=== PATIENT | female | born 1985 | race Caucasian/White ===

== ENCOUNTER 2017-11-30 05:06 | Inpatient (IN) ==
[2017-11-30] MEDS ORDERED: fentaNYL Citrate Inj 100 MCG/2 ML Ampul IV.PUSH PRN ×2 (06:04)
[2017-11-30] MEDS ORDERED: Sod Chloride 0.9% Inj 1,000 ML IV.CONT PRN (06:04)
[2017-11-30] MEDS ORDERED: Naloxone Inj 0.4 MG/ML Vial IV.PUSH PRN ×2 (06:04→18:32)
[2017-11-30] MEDS ORDERED: Oxytocin 30 Units/500ml Premix 30 UNITS/500 ML BAG IV.SIG ONE (06:04)
[2017-11-30] MEDS ORDERED: Sodium Chlor 0.9% Inj 500 ML IV.SIG PRN (06:04)
--- NOTE | 2017-11-30 06:14 | P.HPOB ---
History of Present Illness Primary Care Physician: UNKNOWN Dr. Leon Chief Complaint: Contractions History of Present Illness: Patient is a 31-year-old white female at [address] weeks [address] to Dr[address] Leon for care and presents complaining of contractions for approximately 24 hours. Certainly gotten worse and more regular over the last few hours. She denies bleeding or leakage of fluid. Her NST is reactive she is brigitte every 2 minutes Weeks Gestation:: 39 Para: 0 : 1 Review of Systems Constitutional: Denies anorexia, Denies body ache(s), Denies chills, Denies daytime sleepiness, Denies excessive sweating, Denies fatigue, Denies fever(s), Denies headache(s), Denies increased appetite, Denies lack of energy, Denies malaise, Denies night sweats, Denies weakness, Denies weight gain, Denies weight loss, Denies other Cardiovascular: Denies bluish discoloration of hand/feet, Denies chest pain, Denies chest pain at rest, Denies chest pain with activity, Denies excessive sweating, Denies fainting, Denies fast heart rate, Denies foot swelling, Denies generalized swelling, Denies irregular heart rhythm, Denies leg pain with activity, Denies leg sores, Denies leg swelling, Denies lightheadedness, Denies radiating jaw, neck or arm pain, Denies rapid, pounding, or irregular heartbeat , Denies shortness of breath, Denies shortness of breath with activity, Denies shortness of breath when lying down, Denies shortness of breath causing sudden awakening, Denies slow heart rate, Denies other Respiratory: Denies change in phlegm color, Denies chest congestion, Denies cough, Denies coughing up blood, Denies excessive phlegm production, Denies pain on inspiration, Denies pain with cough, Denies shortness of breath, Denies shortness of breath with activity, Denies snoring, Denies stridor, Denies wheezing, Denies other Gastrointestinal: Denies abdominal pain, Denies belching, Denies black, tarry stools, Denies bloating, Denies bright, red blood in stools, Denies change in bowel habits, Denies constant urge to pass stool, Denies change in stools, Denies coffee ground vomit, Denies constipation, Denies cramping, Denies difficulty swallowing, Denies excessive passing of gas, Denies feeling full early, Denies heartburn, Denies incontinent of stools, Denies loose stools, Denies nausea, Denies pain with swallowing, Denies vomiting, Denies vomiting blood, Denies other Genitourinary: Denies abnormal periods, Denies abnormal vaginal bleeding, Denies absent period, Denies bleeding between periods, Denies blood in urine, Denies difficulty starting urination, Denies difficulty urinating, Denies dribbling after urination, Denies frequent nighttime urination, Denies genital itching, Denies genital lesions, Denies heavy periods, Denies hot flashes, Denies light periods, Denies nipple discharge, Denies painful intercourse, Denies painful periods, Denies painful urination, Denies pelvic pain, Denies prolapse symptoms, Denies sexual problems, Denies side pain, Denies urinary incontinence, Denies urinary urgency, Denies vaginal discharge, Denies vaginal dryness, Denies vaginal odor, Denies vaginal itching, Denies other Neurologic: Denies abnormal hearing, Denies abnormal movements, Denies abnormal speech, Denies abnormal walking, Denies behavioral changes, Denies burning sensations, Denies confusion, Denies dizziness, Denies fainting, Denies frequent falls, Denies headache(s), Denies lack of coordination, Denies localized weakness, Denies loss of vision, Denies memory loss, Denies numbness, Denies other visual disturbances, Denies radiating pain, Denies restless legs, Denies convulsions, Denies seizure-like activity, Denies sensory deficit, Denies tingling, Denies tingling/numbness/burning sensations, Denies tremor(s), Denies unsteadiness, Denies weakness, Denies other Hematologic/Lymphatic: Denies easy bleeding, Denies easy bruising, Denies enlarged lymph nodes, Denies other PMFSH - Social History I have reviewed the patient's Social History: Yes - Tobacco History Smoking Status: Never smoker - Alcohol History How Often Do You Have a Drink Containing Alcohol: Never - Substance Use History Substance History: No History of Abuse - Travel History History of Recent Travel: No Recent Travel in the [facility] Within the Last 8 Weeks: No Recent Travel Out of the Country Within the Last 8 Weeks: No Medications and Allergies Active Medications: Active Medications Citric Acid/Sodium Citrate (Sodium Citrate/Citric Acid Liq) 30 ml 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 [facility] Stop: 12/04/17 06:14 Fentanyl Citrate (Fentanyl Inj) 50 mcg IV.PUSH Q1H PRN PRN Reason: Pain Scale 3 - 5 Fentanyl Citrate (Fentanyl Inj) 100 mcg IV.PUSH Q1H PRN PRN Reason: PAIN SCALE 6 TO 10 Lactated Ringer's (Lr 1000 Ml Inj) 1,000 mls @ 125 mls/hr IV.CONT .Q8H PROSPER Lactated Ringer's (Lr 1000 Ml Inj) 1,000 mls @ 3,000 mls/hr IV.SIG UNSCH PRN PRN Reason: compromise or epidural Sodium Chloride (Ns Inj) 500 mls @ 1,000 mls/hr IV.SIG UNSCH PRN PRN Reason: SEE LABEL COMMENTS Sodium Chloride (Ns Inj) 1,000 mls @ 100 mls/hr IV.CONT .Q10H PRN PRN Reason: SEE LABEL COMMENTS Oxytocin (Pitocin 30 Units/Ns 500 Ml Premix) 30 units in 500 mls @ 999 mls/hr IV.SIG BOLUS ONE Stop: 11/30/17 06:34 Lidocaine HCl (Xylocaine 1% Inj) 0.1 ml I-DERMAL PRN PRN PRN Reason: For IV start Stop: 12/03/17 06:03 Lidocaine HCl (Xylocaine 1% Inj) 10 ml INFILTRATN PRN PRN PRN Reason: For episiotomy repair Stop: 12/02/17 06:03 Mineral Oil (Muri-Lube Oil) 10 ml TOPICAL PRN PRN PRN Reason: PRN perineal massage Naloxone HCl (Narcan Inj) 0.1 mg IV.PUSH Q2M PRN PRN Reason: for opiate reversal Ondansetron HCl (Zofran Inj) 4 mg IV.PUSH Q6H PRN PRN Reason: NAUSEA OR VOMITING Allergies Allergy/AdvReac Type Severity Reaction Status Date / Time No Known Allergies Allergy Unverified 11/30/17 05:18 Home Medications Medication Instructions Recorded Confirmed Type omega 2-usv-yzt-fish oil [Fish Oil] 1 cap PO DAILY 11/30/17 11/30/17 History prenat.vits,tania,ahn-baex-fdfom 1 tab PO DAILY 11/30/17 11/30/17 History [ Vitamin] valacyclovir [Valtrex] 500 mg PO DAILY 11/30/17 11/30/17 History Exam Vital signs: Vital Signs 11/30/17 05:25 Temperature 97.9 F Pulse Rate 80 Respiratory Rate 18 Blood Pressure 139/73 Intake & Output 11/29/17 11/29/17 11/30/17 06:59 18:59 06:59 Weight 81.647 kg Narrative: GENERAL: Well-nourished, well-developed patient. SKIN: Warm and dry. HEAD: Normocephalic and atraumatic. EYES: No scleral icterus. No injection or drainage. ENT: No nasal drainage noted. Mucous membranes pink. Airway patent. NECK: Supple, trachea midline. No JVD. CARDIOVASCULAR: Regular rate and rhythm without murmurs, gallops, or rubs. RESPIRATORY: Breath sounds equal bilaterally. No accessory muscle use. BREASTS: Bilateral exam showed no masses , no retractions, no nipple discharge. ABDOMEN/GI: Abdomen soft, non-tender, bowel sounds present, no rebound, no guarding Gravid to [39-] weeks size Fundal Height: [39-] GENITOURINARY: External Genitalia: intact and normal in appearance no herpetic lesions seen vagina free of lesions Cervix: [-post] Dilatation: [2-3-] Effacement: [80-] Station: [-3] Presentation: [vtx-] Membranes: [intact o ] Uterine Contractions: [q 2 min-] FHT's: Category: [-1] Baseline: [133-] Reactive: [R-] Variability: [-mod] Decels: [0-] EXTREMITIES: No cyanosis or edema. BACK: Nontender without obvious deformity. No CVA tenderness. NEUROLOGICAL: Awake and alert. Motor and sensory grossly within normal limits. Five out of 5 muscle strength in all muscle groups. Normal speech. - Constitutional no acute distress - Routine HEENT Exam Head: Present: normocephalic, atraumatic Eye: Present: PERRL Results - Labs Group B Strep: Negative Caprini VTE Risk Assessment Caprini VTE Risk Assessment: No/Low Risk (score <= 1) Caprini Risk Assessment Model: Point Value = 1 Point Value = 2 Point Value = 3 Point Value = 5 Age 41-60 Minor surgery BMI > 25 kg/m2 Swollen legs Varicose veins or History of unexplained or recurrent spontaneous Oral contraceptives or hormone replacement Sepsis (< 1 month) Serious lung disease, including pneumonia (< 1 month) Abnormal pulmonary function Acute myocardial infarction Congestive heart failure (< 1 month) History of inflammatory bowel disease Medical patient at bed rest Age 61-74 Arthroscopic surgery Major open surgery (> 45 min) Laparoscopic surgery (> 45 min) Malignancy Confined to bed (> 72 hours) Immobilizing plaster cast Central venous access Age >= 75 History of VTE Family history of VTE Factor V Leiden Prothrombin [id number] Lupus anticoagulant Anticardiolipin antibodies Elevated serum homocysteine Heparin-induced thrombocytopenia Other congenital or acquired thrombophilia Stroke (< 1 month) Elective arthroplasty Hip, pelvis, or leg fracture Acute spinal cord injury (< 1 month) Prophylaxis Regimen: Total Risk Factor Score Risk Level Prophylaxis Regimen 0-1 Low Early ambulation 2 Moderate Order ONE of the following: *Sequential Compression Device (SCD) *Heparin 5000 units SQ BID 3-4 Higher Order ONE of the following medications: *Heparin 5000 units SQ TID *Enoxaparin/Lovenox 40 mg SQ daily (WT < 150 kg, CrCl > 30 mL/min) *Enoxaparin/Lovenox 30 mg SQ daily (WT < 150 kg, CrCl > 10-29 mL/min) *Enoxaparin/Lovenox 30 mg SQ BID (WT < 150 kg, CrCl > 30 mL/min) AND/OR *Sequential Compression Device (SCD) 5 or more Highest Order ONE of the following medications: *Heparin 5000 units SQ TID (Preferred with Epidurals) *Enoxaparin/Lovenox 40 mg SQ daily (WT < 150 kg, CrCl > 30 mL/min) *Enoxaparin/Lovenox 30 mg SQ daily (WT < 150 kg, CrCl > 10-29 mL/min) *Enoxaparin/Lovenox 30 mg SQ BID (WT < 150 kg, CrCl > 30 mL/min) AND *Sequential Compression Device (SCD) Assessment and Plan - Diagnosis (1) 39 weeks gestation of Code(s): Z3A.39 - 39 weeks gestation of Status: Acute (2) Uterine contractions during Code(s): O62.2 - Other uterine inertia Status: Acute - Plan This primiparous patient of Dr. Leon's 39 weeks presents in early labor, cervix is 2-3/80/-3 with cervical loss very posterior, contractions are every 2- 3 minutes patient reports and quite painful and this been going on now for 24 hours she describes. She has a history of herpes simplex 2 has been on Valtrex for some time per alejandra Chahal no lesions noted and no lesions complained of Plan for the patient is admission to the hospital, managed labor and augment as needed and anticipate vaginal delivery per her private OB
[2017-11-30] MEDS ORDERED: Citric Acid/Sodium Citrate Liq 30 ML UDC PO SCH (06:15)
[2017-11-30 08:58] LABS: Bacteria,Urine Rare /hpf; Bilirubin,Urine Negative (Negative); Clarity,Urine Clear (Clear); Color,Urine Yellow (Yellw/Straw); Glucose,Urine (UA) Negative (Negative); Leukocyte Esterase,Urine Negative (Negative); Nitrite,Urine Negative (Negative); Specific Gravity,Urine 1.013 (1.002-1.035); Squamous Epithelial Cell,Urine <1 /hpf (0-5)
[2017-11-30 09:01] LABS: Baso % (Auto) 0.1 % (0.0-2.0); Eos % (Auto) 0.2 % (0.0-4.0); Hematocrit 40.8 % (35.0-46.0); Hemoglobin 13.5 gm/dL (11.6-15.3); Lymph # (Auto) 1.8 th/mm3 (1.0-4.8); Lymph % (Auto) 13.9 % (9.0-44.0); Mean Corpuscular HGB Conc 33.2 % (32.0-36.0); Mean Corpuscular Hemoglobin 32.7 pg (27.0-34.0); Mean Corpuscular Volume 98.4 fL (80.0-100.0); Mean Platelet Volume 10.3 fL (7.0-11.0); Mono # (Auto) 0.8 th/mm3 (0.0-0.9); Mono % (Auto) 6.4 % (0.0-8.0); Neut # (Auto) 10.3 th/mm3 (1.8-7.7); Neut % (Auto) 79.4 % (16.0-70.0); Platelet Count 194 th/mm3 (150-450); Red Blood Count 4.14 mil/mm3 (4.00-5.30); Red Cell Distribution Width 14.3 % (11.6-17.2)
--- NOTE | 2017-11-30 09:01 | MH ---
cc: Carlos Leon MD DATE OF ADMISSION: 11/30/2017 TIME: 8:30 a.m. ADMITTING DIAGNOSES: Term , early labor latent phase. HISTORY OF PRESENT ILLNESS: The patient is a 31-year-old single white female, para 0, with a LMP of 02/28/2017, EDC of 12/05/2017. Her course has been benign. She had normal Panorama testing. She was admitted this morning with intermittent contractions off and on since yesterday morning. They have become a little stronger when she woke up at 2:30 this morning. On arrival, she was 2-3 cm, 80, vertex -2 with a posterior cervix. She has been walking for about 2 hours and monitoring has been normal except for 1 deceleration mild. She has been rechecked now by me with no change in her cervix. PAST SURGICAL HISTORY: Third molars, breast augmentation. ALLERGIES: NONE. TRANSFUSIONS: None. OBSTETRIC HISTORY: First . SOCIAL HISTORY: She is single. 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 Her screening cultures for Streptococcus, HSV, and Gen-Probe were all negative. She has been on Valtrex prophylaxis since 10/19/2017 with no lesions. REVIEW OF SYSTEMS: Negative. PHYSICAL EXAMINATION: GENERAL: This is a well-nourished, well-developed, white female. VITAL SIGNS: Stable. HEENT: Normal. CHEST: Clear. CARDIAC: Regular rate. BREASTS: Symmetrical. ABDOMEN: Gravid. EFW is 3300 grams. PELVIC: Cervix is 2-3, 80, vertex intact, -2. ASSESSMENT: As above. PLAN: I discussed the option to either proceed with augmentation of labor with Pitocin and later AROM if she failed spontaneous rupture or to continue walking or to discharge home and come back to the hospital when they are more intense. I have discussed anesthesia options including epidural and patient will decide. MD JUSTINE Rebollar/bryan , 08:40 AM , 08:48 AM
[2017-11-30 09:08] LABS: Amphetamine Urine With Conf Neg (Neg); Benzodiazepine Urine With Conf Neg (Neg)
[2017-11-30] MEDS ORDERED: fentaNYL 2MCG-Bupiv 0.125% Epi 150 ML EPIDURAL ONE (09:09)
[2017-11-30] MEDS ORDERED: Lidocaine PF 1% Inj 5 ML Vial ONE (09:40)
[2017-11-30] MEDS ORDERED: Lidocaaine 1.5%/Epinephrine 1:200,000 PF Inj 5 ML Amp ONE (09:40)
[2017-11-30] MEDS ORDERED: Oxytocin 30 Units/500ml Premix 30 UNITS/500 ML BAG IV.CONT PRN ×2 (09:56→18:32)
[2017-11-30] MEDS ORDERED: fentaNYL Citrate Inj 100 MCG/2 ML Ampul EPIDURAL ONE (11:15)
[2017-11-30] MEDS ORDERED: fentaNYL 2MCG-Bupiv 0.125% Epi 150 ML EPIDURAL PRN (11:15)
[2017-11-30] MEDS ORDERED: Measles/Mumps/Rubella Vaccine Inj 0.5 ML Vial SQ ONE (16:00)
[2017-11-30] MEDS ORDERED: Diphtheria/Tetanus/Pertussis Vaccine Inj 0.5 ML Syringe IM ONE (16:00)
[2017-11-30] MEDS ORDERED: Lidocaine 2%/Epinephrine 1:200,000 PF 10 ML SDV ONE (16:31)
[2017-11-30] MEDS ORDERED: Lidocaine 2%/Epinephrine 1:200,000 PF Inj 20 ML Vial ONE (16:46)
[2017-11-30] MEDS ORDERED: Lidocaine 1% Inj 50 ML Vial ONE (18:03)
[2017-11-30] MEDS ORDERED: Benzocaine 20% Top Spray 60 ML Can TOPICAL PRN (18:32)
[2017-11-30] MEDS ORDERED: Witch Hazel 50%/Glyderin 12.5% 40 Pad Jar RECTAL PRN (18:32)
[2017-11-30] MEDS ORDERED: Acetaminophen 325 MG Tablet PO PRN (18:32)
[2017-11-30] MEDS ORDERED: Zolpidem Tartrate 5 MG Tablet PO PRN (18:32)
[2017-11-30] MEDS ORDERED: Bisacodyl 10 MG Supp RECTAL PRN (18:32)
[2017-11-30] MEDS: Senna/Docusate Sodium 8.6/50 MG Tablet PO SCH (20:36)
--- NOTE | 2017-11-30 22:35 | MP ---
cc: Carlos Leon MD DATE OF OPERATION: 11/30/2017 DELIVERY SUMMARY The patient is a 31-year-old single white female, para 0. She had labored throughout the day. After a final knee-chest position, the baby rotated spontaneously from OP and the patient felt strong urge to push. The hospitalist stepped in while I was en route. Baby delivered spontaneously over a midline second-degree tear with a shoulder cord, a viable vigorous male, Apgars 8 and 8. I arrived and did the exam which revealed a midline second-degree tear. This was anesthetized with 10 mL of 1% lidocaine and repaired with 2-0 chromic in a running locking fashion for the vagina, interrupted for the perineum and subcuticular for the skin. The placenta delivered intact. Post-delivery inspection of vagina and cervix were normal. Rectal exam was normal. ESTIMATED BLOOD LOSS: 300 mL Baby is a viable male, Apgars 8 and 8. MD JUSTINE Rebollar/gómez , 06:40 PM , 06:46 PM ESTUARDO
[2017-12-01] MEDS ORDERED: valACYclovir 500 MG Tab PO SCH (09:00)
[2017-12-01] MEDS: Senna/Docusate Sodium 8.6/50 MG Tablet PO SCH ×2 (09:17→22:10)
[2017-12-01 10:41] LABS: Baso % (Auto) 0.2 % (0.0-2.0); Eos % (Auto) 0.1 % (0.0-4.0); Hematocrit 36.6 % (35.0-46.0); Hemoglobin 12.2 gm/dL (11.6-15.3); Lymph # (Auto) 1.7 th/mm3 (1.0-4.8); Lymph % (Auto) 11.9 % (9.0-44.0); Mean Corpuscular HGB Conc 33.4 % (32.0-36.0); Mean Corpuscular Volume 98.8 fL (80.0-100.0); Mean Platelet Volume 9.9 fL (7.0-11.0); Mono # (Auto) 0.7 th/mm3 (0.0-0.9); Neut # (Auto) 11.7 th/mm3 (1.8-7.7); Neut % (Auto) 82.8 % (16.0-70.0); Platelet Count 172 th/mm3 (150-450); Red Cell Distribution Width 14.2 % (11.6-17.2); White Blood Count 14.2 th/mm3 (4.0-11.0)
[2017-12-01 20:19] VITALS: RESP 18
[2017-12-02] MEDS: Senna/Docusate Sodium 8.6/50 MG Tablet PO SCH (08:37)
[2017-12-02 08:49] VITALS: BP 112/71; PULSE 79; TEMP 97.8
--- NOTE | 2017-12-02 09:06 | MD ---
cc: Carlos Leon MD DATE OF DISCHARGE: 12/02/2017 ADMITTING DIAGNOSIS: Term , early labor. DISCHARGE DIAGNOSES: 1. Term , early labor. 2. Delivered. HISTORY OF PRESENT ILLNESS: The patient is a 21-year-old single white female, para 0, with a LMP of 02/28/2017, EDC of 12/05/2017. HOSPITAL COURSE: She was admitted in early labor on the morning of 11/20/2017, required Pitocin augmentation, epidural anesthesia. She had some intermittent decelerations that resolved with position change, IV fluid, and later amnioinfusion. At around 8 cm, her labor arrested. She responded to a knee-chest position with rotation of the vertex and then a precipitous delivery with the hospitalist attending until I could arrive on site. She had a viable vigorous male, Apgars 8 and 8. did well. Discharged home on 12/02/2017. DISCHARGE INSTRUCTIONS: She was instructed in care of the second-degree midline tear and circumcision. Advised NPV; light activity; return to see me in 2 weeks; and call if abnormal pain, bleeding, temperature, signs of infection, or depression. She will use Motrin OTC for pain relief and take her vitamins at home. MD JUSTINE Rebollar/rs , 08:42 AM , 08:47 AM
== END 2017-12-02 13:43 | disposition home or self-care (01) ==
LOC: HOBED 05:06 → H2E 06:17 → H1EA 19:47
PROVIDERS: ADMIT Obstetrics & Gynecology; ATTEND Obstetrics & Gynecology